=== PATIENT | female | born 2000 | race Caucasian/White ===

== ENCOUNTER 2019-08-20 12:20 | Emergency (ER) | payer OTHER ==
[2019-08-20 12:40] VITALS: BP 118/57
--- NOTE | 2019-08-20 13:31 | ER Document Report ---
HPI - HPI Time Seen by Provider: 08/20/19 13:17 Onset: Just prior to arrival Quality of pain: Achy Associated Symptoms: None Notes: This 18-year-old female who found out she was last week with several home test. She did start having some vaginal bleeding on Friday evening. [facility] was confirmed on Friday with a quantitative level of 20. She continued to bleed and did follow- up on Friday with a quantitative level of 10. She does have an appointment for next that they were again wanted to repeat the level to make sure it went down to 0. Patient came into the emergency room because she really was not sure of the quality of care and the diagnosis was not really explained to her very well. It should be noted that she has no bleeding no spotting at this point of time. No pain no nausea no vomiting no fever. Past Medical History - General Information source: Patient - Social History Smoking Status: Never Smoker Cigarette use (# per day): No Chew tobacco use (# tins/day): No Smoking Education Provided: No Family History: None Vertical Provider Document - CONSTITUTIONAL Agree With Documented VS: Yes - NECK Neck: Normal Inspection - RESPIRATORY Respiratory: Breath Sounds Normal - CARDIOVASCULAR Cardiovascular: Regular Rate, Regular Rhythm - GI/ABDOMEN Gastrointestinal: Abdomen Soft, Abdomen Non-Tender - REPRODUCTIVE Female Genitalia: Normal Inspection - BACK Back: Normal Inspection - MUSCULOSKELETAL/EXTREMETIES Musculoskeletal/Extremeties: MAEW - NEURO Level of Consciousness: Awake, Alert, Appropriate, Confused Motor/Sensory: No Motor Deficit, No Sensory Deficit - DERM Integumentary: Warm, Dry Course - Re-evaluation Re-evalutation: 08/20/19 13:30 Long conversation was had with the patient explaining woman's menstrual cycle the fact that she had no bleeding no spotting or cramping at this point in time and that her levels have been coming down she does in fact already have follow- up set up she agreed that it would be prudent to go ahead and maintain at follow-up returning to the emergency room for absolutely any change worsening including that of bleeding spotting cramping nausea vomiting or fever. - Vital Signs Vital signs: Temp Pulse Resp BP Pulse Ox 98.8 F 84 16 118/57 L 100 08/20/19 12:35 08/20/19 12:35 08/20/19 12:35 08/20/19 12:35 08/20/19 12:35 Discharge - Discharge Clinical Impression: Spontaneous Condition: Good Disposition: HOME, SELF-CARE Instructions: Miscarriage ([facility])
== END 2019-08-20 13:33 | disposition home or self-care (01) ==
LOC: ER 12:20
DX: O03.9 Complete or unspecified spontaneous abortion without complication (principal)
CPT/HCPCS: 99283